=== PATIENT | female | born 1995 | race Caucasian/White ===

== ENCOUNTER 2017-01-04 13:01 | Emergency (ER) | payer MEDICAID ==
[2017-01-04] MEDS ORDERED: Ondansetron 4 MG Tab.DIS PO ONE (13:22)
--- NOTE | 2017-01-04 13:28 | EDM.PDOC ---
ED HPI GENERAL MEDICAL PROBLEM - General Chief Complaint: Abdominal Pain Stated Complaint: LOWER RIGHT ABDOMINAL PAIN Time Seen by Provider: 01/04/17 13:15 Source of Information: Reports: Patient History Limitations: Reports: No Limitations - History of Present Illness INITIAL COMMENTS - FREE TEXT/NARRATIVE: 21 yo female presents with nausea, vomiting, diarrhea, and RLQ abdominal pain that began last evening. Took acetaminophen 650 mg po at 0600h today. Had a small amount of bright red blood on the toilet paper with wiping today. No blood in her emesis. No known exposures. Still has her appendix. ? slight dizziness with standing. 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 PYLORI Other OB/BYN History: Right ovarian cyst drained in January Hematologic History: Reports: Anemia, Idiopathic Thrombocytopenia Other Hematologic History: Recently taken off of iron. Social & Family History - Family History Family Medical History: Noncontributory Cardiac: Reports: Hypertension - Tobacco Use Smoking Status *Q: Never Smoker Second Hand Smoke Exposure: No - Caffeine Use Caffeine Use: Reports: None - Alcohol Use Days Per Week of Alcohol Use: 0 Number of Drinks Per Day: 2 Total Drinks Per Week: 0 - Recreational Drug Use Recreational Drug Use: No ED ROS GENERAL - Review of Systems Review Of Systems: See Below Constitutional: Reports: Decreased Appetite HEENT: Reports: No Symptoms Respiratory: Reports: No Symptoms Cardiovascular: Reports: Lightheadedness (mild) Endocrine: Reports: No Symptoms GI/Abdominal: Reports: Abdominal Pain, Diarrhea, Decreased Appetite, Nausea, Vomiting. Denies: Black Stool, Bloody Stool, Constipation, Difficulty Swallowing, Distension, Flatus, Hematemesis, Hematochezia, Melena, Stool Incontinence : Reports: No Symptoms Musculoskeletal: Reports: No Symptoms Skin: Reports: No Symptoms Neurological: Reports: No Symptoms Psychiatric: Reports: No Symptoms ED EXAM, GI/ABD - Physical Exam Exam: See Below Exam Limited By: No Limitations General Appearance: Alert, WD/WN, No Apparent Distress, Obese Eyes: Bilateral: Normal Appearance, EOMI Ears: Normal External Exam, Normal Canal, Hearing Grossly Normal Nose: Normal Inspection, Normal Mucosa, No Blood Throat/Mouth: Normal Inspection, Normal Lips, Normal Teeth, Normal Oropharynx, Normal Voice, No Airway Compromise Head: Atraumatic, Normocephalic Neck: Normal Inspection, Supple Respiratory/Chest: No Respiratory Distress, Lungs Clear, Normal Breath Sounds, No Accessory Muscle Use Cardiovascular: Regular Rate, Rhythm, No Edema GI/Abdominal: Soft, No Distention, Hypoactive Bowel Sounds, Tenderness, McBurney 's Sign, Other (Striae). No: Guarding, Rebound Back Exam: Normal Inspection. No: CVA Tenderness (R), CVA Tenderness (L) Extremities: Normal Inspection, Normal Range of Motion, Non-Tender, No Pedal Edema Neurological: Alert, Oriented, CN II-XII Intact, Normal Cognition, No Motor/ Sensory Deficits Psychiatric: Normal Affect, Normal Mood Skin Exam: Warm, Dry, Intact, Normal Color, No Rash Lymphatic: No Adenopathy Course - Vital Signs Text/Narrative:: Zofran ODT 4 mg SL, acetaminophen 1000 mg po, diclyclomine 20 mg po orthostatic vitals-negative Last Recorded V/S: Orthostatic Blood Pressure [ 142/95 Standing] Orthostatic Blood Pressure [ 142/82 Sitting] Orthostatic Blood Pressure [ 132/75 Supine] - Orders/Labs/Meds Orders: Active Orders 24 hr Category Date Time Status Orthostatic Vital Signs [RC] ASDIRECTED Care 01/04/17 13:22 Active UA W/MICROSCOPIC [URIN] Stat Lab 01/04/17 14:05 Received Labs: Laboratory Tests 01/04/17 01/04/17 01/04/17 Range/Units 13:27 13:27 13:27 WBC 10.4 (4.5-12.0) X10-3/uL RBC 4.87 (3.23-5.20) x10(6)uL Hgb 14.1 (11.5-15.5) g/dL Hct 41.9 (30.0-51.3) % MCV 85.9 (80-96) fL MCH 28.9 (27.7-33.6) pg MCHC 33.6 (32.2-35.4) g/dL RDW 12.4 (11.5-15.5) % Plt Count 120 L (125-369) X10(3)uL Sodium 136 (135-145) mmol/L Potassium 3.7 (3.5-5.3) mmol/L Chloride 106 (100-110) mmol/L Carbon Dioxide 23 (23-29) mmol/L BUN 10 (5-20) mg/dL Creatinine 0.6 (0.6-1.3) mg/dL Est Cr Clr Drug Dosing TNP Estimated GFR (MDRD) > 60 (>60) BUN/Creatinine Ratio 16.7 (9-20) Glucose 92 (80-116) mg/dL Calcium 9.0 (8.6-10.2) mg/dL C-Reactive Protein 0.9 (0.0-1.0) mg/dL Meds: Medications Discontinued Medications Generic Name Dose Route Start Last Admin Trade Name Goldq PRN Reason Stop Dose Admin Acetaminophen 1,000 mg 01/04/17 13:57 Tylenol Extra Strength PO 01/04/17 13:58 ONETIME ONE Dicyclomine HCl 20 mg 01/04/17 13:58 Bentyl PO 01/04/17 13:59 ONETIME ONE Ondansetron HCl 4 mg 01/04/17 13:22 01/04/17 13:43 Zofran Odt PO 01/04/17 13:23 4 mg ONETIME ONE Administration Departure - Departure Time of Disposition: 14:25 Disposition: Home, Self-Care 01 Condition: good Clinical Impression: Nausea vomiting and diarrhea - Discharge Information - My Orders Last 24 Hours: My Active Orders 01/04/17 13:22 Orthostatic Vital Signs [RC] ASDIRECTED 01/04/17 14:05 UA W/MICROSCOPIC [URIN] Stat - Assessment/Plan Last 24 Hours: My Active Orders 01/04/17 13:22 Orthostatic Vital Signs [RC] ASDIRECTED 01/04/17 14:05 UA W/MICROSCOPIC [URIN] Stat
[2017-01-04] MEDS ORDERED: Acetaminophen 500 MG Tab PO ONE (13:57)
[2017-01-04] MEDS ORDERED: Dicyclomine 10 MG Cap PO ONE (13:58)
[2017-01-04 14:53] VITALS: BP 137/82
== END 2017-01-04 14:37 | disposition home or self-care (01) ==
LOC: FB.ED 13:01
DX: R11.2 Nausea with vomiting, unspecified (principal); R19.7 Diarrhea, unspecified; R10.31 Right lower quadrant pain; Z86.2 Personal history of diseases of the blood and blood-forming organs and certain disorders involving the immune mechanism
CPT/HCPCS: 36415; 80048; 81001; 85027; 86140; 99284; A9270

== ENCOUNTER 2017-01-11 16:31 | Observation (INO) | payer MEDICAID ==
[2017-01-11] MEDS ORDERED: Sodium Chloride 0.9% 10 ML Syringe FLUSH PRN (18:13)
[2017-01-11] MEDS: Sodium Chloride 0.9% 1,000 ML IV SCH (18:40)
[2017-01-11] MEDS: Ondansetron 4 MG Tab.DIS PO PRN (18:40)
[2017-01-11] MEDS ORDERED: Ibuprofen 600 MG Tab PO PRN (19:26)
[2017-01-11] MEDS ORDERED: Sodium Chloride 0.9% 1,000 ML IV ONE (19:27)
--- NOTE | 2017-01-11 20:46 | PCM.HP ---
H&P History of Present Illness - General Date of Service: 01/11/17 Admit Problem/Dx: Admission Diagnosis/Problem Admission Diagnosis/Problem Abdominal pain Source of Information: Patient History Limitations: Reports: No Limitations - History of Present Illness Initial Comments - Free Text/Narative: Is a 21-year-old female patient that had nausea and vomiting for 10 days with a right lower quadrant abdominal pain. She was seen in the ER x1 with negative UA and was given Zofran. She says Zofran did not help. He saw Dr. Rick today and was admitted. She says she's not been able to eat anything for the last 3 days. She says she had an ovarian cyst on the right side was operated on a year ago. She has had no other abdominal surgeries. She denies dysuria, pyuria, hematuria, vaginal discharge. She just started her period 2 days ago. She doesn't believe she's . She is engaged and has been in a monogamous relationship for quite some time. She states she got she has a STD. She denies diarrhea, hematochezia, melena or constipation. She denies fevers or chills. She says the pain is right lower quadrant and it does not radiate. Nothing makes it better. The bending over makes it worse. - Related Data Allergies/Adverse Reactions: Allergies Allergy/AdvReac Type Severity Reaction Status Date / Time No Known Allergies Allergy Verified 01/11/17 17:23 Home Medications: Home Meds Ondansetron [Zofran ODT] 4 mg PO Q6H PRN #7 tab.dis 01/04/17 [Rx] Norgestimate-Ethinyl Estradiol [Norg-Ee 0.18-0.215-0.25/0.025] 1 each PO DAILY 01/11/17 [History] Venlafaxine HCl [Venlafaxine ER] 75 mg PO BEDTIME 01/11/17 [History] Past Medical History - Past Health History Medical/Surgical History: Denies Medical/Surgical History Other Gastrointestinal History: H. PYLORI Other OB/BYN History: Right ovarian cyst drained in January Hematologic History: Reports: Anemia, Idiopathic Thrombocytopenia Other Hematologic History: Recently taken off of iron. - Past Surgical History GI Surgical History: Reports: None Social & Family History - Family History Family Medical History: Noncontributory Cardiac: Reports: Hypertension - Tobacco Use Smoking Status *Q: Never Smoker Second Hand Smoke Exposure: No - Caffeine Use Caffeine Use: Reports: Soda - Alcohol Use Days Per Week of Alcohol Use: 0 Number of Drinks Per Day: 2 Total Drinks Per Week: 0 - Recreational Drug Use Recreational Drug Use: No H&P Review of Systems - Review of Systems: Review Of Systems: See Below General: Reports: No Symptoms HEENT: Reports: No Symptoms Pulmonary: Reports: No Symptoms Cardiovascular: Reports: No Symptoms Gastrointestinal: Reports: Abdominal Pain Genitourinary: Reports: No Symptoms Musculoskeletal: Reports: No Symptoms Skin: Reports: No Symptoms Psychiatric: Reports: No Symptoms Neurological: Reports: No Symptoms Hematologic/Lymphatic: Reports: No Symptoms Immunologic: Reports: No Symptoms Exam - Exam Exam: See Below - Vital Signs Vital Signs: Last Vital Signs Temp 97.9 F 01/11/17 16:45 Pulse 105 H 01/11/17 16:45 Resp 16 01/11/17 16:45 BP 130/88 01/11/17 16:45 Pulse Ox 97 01/11/17 16:45 Weight: 270 lb - Exam General: Alert, Oriented, Cooperative HEENT: Hearing Intact, Posterior Pharynx Clear, TMs Clear. No: Mucosa Moist & [place] Neck: Supple, Trachea Midline Lungs: Clear to Auscultation, Normal Respiratory Effort Cardiovascular: Regular Rate, Regular Rhythm, Normal S1, Normal S2. No: Systolic Murmur, Diastolic Murmur Abdomen: Soft, Tenderness (Mild tenderness to right lower quadrant. No rebound or guarding.). No: Peritoneal Signs, Distention, Guarding, Rigidity (Female) Exam: Other (Deferred) Back Exam: Normal Inspection, Full Range of Motion Skin: Warm, Dry, Intact Neuro Extensive - Mental Status: Alert, Oriented x3, Normal Mood/Affect, Normal Cognition, Memory Intact Neuro Extensive - Motor, Sensory, Reflexes: Normal Gait Psychiatric: Alert, Normal Affect, Normal Mood - Patient Data Lab Results last 24 hrs: Laboratory Results - last 24 hr 01/11/17 01/11/17 01/11/17 Range/Units 18:30 18:30 19:20 WBC 13.3 H (4.5-12.0) X10-3/uL RBC 5.22 H (3.23-5.20) x10(6)uL Hgb 14.9 (11.5-15.5) g/dL Hct 44.7 (30.0-51.3) % MCV 85.6 (80-96) fL MCH 28.4 (27.7-33.6) pg MCHC 33.2 (32.2-35.4) g/dL RDW 12.1 (11.5-15.5) % Plt Count 153 (125-369) X10(3)uL MPV 10.0 (7.4-10.4) fL Neut % (Auto) 75.4 (46-82) % Lymph % (Auto) 17.2 (13-37) % [place] % (Auto) 5.7 (4-12) % Eos % (Auto) 1 (1.0-5.0) % Baso % (Auto) 1 (0-2) % Neut # (Auto) 10.0 H (1.6-8.3) # Lymph # (Auto) 2.3 (0.6-5.0) # [place] # (Auto) 0.8 (0.0-1.3) # Eos # (Auto) 0.1 (0.0-0.8) # Baso # (Auto) 0.1 (0.0-0.2) # Sodium 136 (135-145) mmol/L Potassium 3.3 L (3.5-5.3) mmol/L Chloride 105 (100-110) mmol/L Carbon Dioxide 21 L (23-29) mmol/L BUN 12 (5-20) mg/dL Creatinine 0.5 L (0.6-1.3) mg/dL Est Cr Clr Drug Dosing 173.08 mL/min Estimated GFR (MDRD) > 60 (>60) BUN/Creatinine Ratio 24.0 H (9-20) Glucose 94 (80-116) mg/dL Calcium 9.1 (8.6-10.2) mg/dL Total Bilirubin 0.4 (0.1-1.3) mg/dL AST 31 H D (5-27) IU/L ALT 65 H D (14-26) IU/L Alkaline Phosphatase 71 (56-112) IU/L Total Protein 8.2 H (6.0-8.0) g/dL Albumin 4.4 (3.5-5.2) g/dL Globulin 3.8 g/dL Albumin/Globulin Ratio 1.2 Urine HCG, Qual Negative (NEGATIVE) Result Diagrams: 01/11/17 18:30 01/11/17 18:30 *Q Meaningful Use (ADM) - VTE *Q VTE Criteria *Q: - Stroke *Q Stroke Criteria *Q: - AMI *Q AMI Criteria *Q: - Problem List (1) Vomiting SNOMED Code(s): 072158860 ICD Code: R11.10 - VOMITING, UNSPECIFIED Status: Acute Current Visit: Yes (2) Dehydration SNOMED Code(s): 97205987 ICD Code: E86.0 - DEHYDRATION Status: Acute Current Visit: Yes (3) Right lower quadrant abdominal pain SNOMED Code(s): 609443477 ICD Code: R10.31 - RIGHT LOWER QUADRANT PAIN Status: Acute Current Visit : Yes Problem List Initiated/Reviewed/Updated: Yes Orders Last 24hrs: Active Orders 24 hr Category Date Time Status Height and Weight [RC] DAILY Care 01/11/17 18:13 Active Intake and Output [RC] QSHIFT Care 01/11/17 18:14 Active May Shower [RC] ASDIRECTED Care 01/11/17 18:13 Active Oxygen Therapy [RC] PRN Care 01/11/17 18:13 Active Up ad Yaneth [RC] ASDIRECTED Care 01/11/17 18:13 Active VTE/DVT Education [RC] Per Unit Routine Care 01/11/17 18:13 Active Vital Signs [RC] Q4H Care 01/11/17 18:13 Active Clear Liquid Diet [DIET] Diet 01/11/17 Dinner Active Pelvis Non OB Comp [US] Routine Exams 01/11/17 18:18 Ordered CHLAMYDIA,AND GC BY APTIMA Routine Lab 01/11/17 19:20 Received CULTURE BLOOD [BC] Urgent Lab 01/11/17 18:30 Received CULTURE BLOOD [BC] Urgent Lab 01/11/17 18:40 Received UA W/MICROSCOPIC [URIN] Routine Lab 01/11/17 19:20 Received Ibuprofen [Motrin] Med 01/11/17 19:26 Active 600 mg PO Q6H PRN Ondansetron [Zofran ODT] Med 01/11/17 18:13 Active 4 mg PO Q4H PRN Sodium Chloride 0.9% [Normal Saline] 1,000 ml Med 01/11/17 18:30 Active IV ASDIRECTED Sodium Chloride 0.9% [Saline Flush] Med 01/11/17 18:13 Active 10 ml FLUSH ASDIRECTED PRN Venlafaxine [Effexor XR] Med 01/11/17 21:00 Active 75 mg PO BEDTIME Blood Culture x2 Reflex Set [OM.PC] Urgent Oth 01/11/17 18:13 Ordered Peripheral IV Insertion Adult [OM.PC] Routine Oth 01/11/17 18:13 Ordered Resuscitation Status Routine Resus Stat 01/11/17 18:13 Ordered Medication Orders Sodium Chloride (Normal Saline) 1,000 mls @ 200 mls/hr IV ASDIRECTED ARELY Last Admin: 01/11/17 18:40 Dose: 200 mls/hr Ibuprofen (Motrin) 600 mg PO Q6H PRN PRN Reason: Pain Ondansetron HCl (Zofran Odt) 4 mg PO Q4H PRN PRN Reason: nausea, able to take PO Last Admin: 01/11/17 18:40 Dose: 4 mg Sodium Chloride (Saline Flush) 10 ml FLUSH ASDIRECTED PRN PRN Reason: Keep Vein Open Venlafaxine HCl (Effexor Xr) 75 mg PO BEDTIME [facility] Assessment/Plan Comment:: 1. Admit for observation. 2. Aggressive IV fluids. 3. Her white count a little elevated but I still think has not appendicitis at this time. 4. Recheck CBC and labs in the morning. 5. He medication. 6. Zofran by mouth for nausea or vomiting. 7. Urine is negative. GC/Chlamydia in the urine. 8. Clear liquids/up ad yaneth.
[2017-01-11] MEDS: Acetaminophen/HYDROcodone 325-5 MG Tab PO PRN (21:30)
[2017-01-11] MEDS ORDERED: Iopamidol 755 MG/ML 150 ML Bottle IV ONE (21:34)
[2017-01-11] MEDS: Venlafaxine 75 MG Cap.ER PO SCH (22:53)
[2017-01-12] MEDS: Sodium Chloride 0.9% 1,000 ML IV SCH ×3 (00:26→12:12)
[2017-01-12] MEDS: Acetaminophen/HYDROcodone 325-5 MG Tab PO PRN ×4 (01:47→20:15)
[2017-01-12] MEDS: Ondansetron 4 MG Tab.DIS PO PRN ×4 (05:08→20:16)
--- NOTE | 2017-01-12 08:41 | PCM.PN ---
- General Info Date of Service: 01/12/17 Admission Dx/Problem (Free Text): Patient states she still is abdominal pain. Ibuprofen is not helping with the hydrocodone is helping. She still feels nauseated and has not been urinating much. She did not vomit today but felt like she should. Zofran was helping. - Patient Data Vitals - most recent: Last Vital Signs Temp 97.5 F 01/12/17 05:00 Pulse 90 01/12/17 05:00 Resp 18 01/12/17 05:00 BP 115/80 01/12/17 05:00 Pulse Ox 98 01/12/17 05:00 Weight - most recent: 281 lb 6.4 oz I&O - last 24 hours: Intake & Output 01/11/17 01/12/17 01/12/17 22:59 06:59 14:59 Intake Total 1924 1750 Output Total 235 175 Balance 1689 1575 Lab Results last 24 hrs: Laboratory Results - last 24 hr 01/11/17 01/11/17 01/11/17 Range/Units 18:30 18:30 19:20 WBC 13.3 H (4.5-12.0) X10-3/uL RBC 5.22 H (3.23-5.20) x10(6)uL Hgb 14.9 (11.5-15.5) g/dL Hct 44.7 (30.0-51.3) % MCV 85.6 (80-96) fL MCH 28.4 (27.7-33.6) pg MCHC 33.2 (32.2-35.4) g/dL RDW 12.1 (11.5-15.5) % Plt Count 153 (125-369) X10(3)uL MPV 10.0 (7.4-10.4) fL Neut % (Auto) 75.4 (46-82) % Lymph % (Auto) 17.2 (13-37) % [place] % (Auto) 5.7 (4-12) % Eos % (Auto) 1 (1.0-5.0) % Baso % (Auto) 1 (0-2) % Neut # (Auto) 10.0 H (1.6-8.3) # Lymph # (Auto) 2.3 (0.6-5.0) # [place] # (Auto) 0.8 (0.0-1.3) # Eos # (Auto) 0.1 (0.0-0.8) # Baso # (Auto) 0.1 (0.0-0.2) # Sodium 136 (135-145) mmol/L Potassium 3.3 L (3.5-5.3) mmol/L Chloride 105 (100-110) mmol/L Carbon Dioxide 21 L (23-29) mmol/L BUN 12 (5-20) mg/dL Creatinine 0.5 L (0.6-1.3) mg/dL Est Cr Clr Drug Dosing 173.08 mL/min Estimated GFR (MDRD) > 60 (>60) BUN/Creatinine Ratio 24.0 H (9-20) Glucose 94 (80-116) mg/dL Calcium 9.1 (8.6-10.2) mg/dL Total Bilirubin 0.4 (0.1-1.3) mg/dL AST 31 H D (5-27) IU/L ALT 65 H D (14-26) IU/L Alkaline Phosphatase 71 (56-112) IU/L Total Protein 8.2 H (6.0-8.0) g/dL Albumin 4.4 (3.5-5.2) g/dL Globulin 3.8 g/dL Albumin/Globulin Ratio 1.2 Urine Color (YELLOW) Urine Appearance (CLEAR) Urine pH (5.0-6.5) Ur Specific [place] (1.010-1.025) Urine Protein (NEGATIVE) mg/dL Urine Glucose (UA) (NEGATIVE) mg/dL Urine Ketones (NEGATIVE) mg/dL Urine Occult Blood (NEGATIVE) Urine Nitrite (NEGATIVE) Urine Bilirubin (NEGATIVE) Urine Urobilinogen (NEGATIVE) mg/dL Ur Leukocyte Esterase (NEGATIVE) Urine RBC (0) Urine WBC (0) Ur Squamous Epith Cells (NS,R,O) Urine Bacteria (NS) Urine Mucus (NS) Urine HCG, Qual Negative (NEGATIVE) 01/11/17 01/12/17 01/12/17 Range/Units 19:20 06:20 06:20 WBC 6.7 (4.5-12.0) X10-3/uL RBC 4.34 (3.23-5.20) x10(6)uL Hgb 12.6 (11.5-15.5) g/dL Hct 37.4 (30.0-51.3) % MCV 86.1 (80-96) fL MCH 28.9 (27.7-33.6) pg MCHC 33.6 (32.2-35.4) g/dL RDW 12.7 (11.5-15.5) % Plt Count 117 L (125-369) X10(3)uL MPV 10.5 H (7.4-10.4) fL Neut % (Auto) 55.6 (46-82) % Lymph % (Auto) 33.1 (13-37) % [place] % (Auto) 9.3 (4-12) % Eos % (Auto) 1 (1.0-5.0) % Baso % (Auto) 1 (0-2) % Neut # (Auto) 3.8 (1.6-8.3) # Lymph # (Auto) 2.2 (0.6-5.0) # [place] # (Auto) 0.6 (0.0-1.3) # Eos # (Auto) 0.1 (0.0-0.8) # Baso # (Auto) 0.0 (0.0-0.2) # Sodium 136 (135-145) mmol/L Potassium 3.3 L (3.5-5.3) mmol/L Chloride 108 (100-110) mmol/L Carbon Dioxide 21 L (23-29) mmol/L BUN 14 (5-20) mg/dL Creatinine 0.6 (0.6-1.3) mg/dL Est Cr Clr Drug Dosing 149.62 mL/min Estimated GFR (MDRD) > 60 (>60) BUN/Creatinine Ratio 23.3 H (9-20) Glucose 86 (80-116) mg/dL Calcium 7.6 L (8.6-10.2) mg/dL Total Bilirubin (0.1-1.3) mg/dL AST (5-27) IU/L ALT (14-26) IU/L Alkaline Phosphatase (56-112) IU/L Total Protein (6.0-8.0) g/dL Albumin (3.5-5.2) g/dL Globulin g/dL Albumin/Globulin Ratio Urine Color Yellow (YELLOW) Urine Appearance Clear (CLEAR) Urine pH 5.0 (5.0-6.5) Ur Specific [place] 1.020 (1.010-1.025) Urine Protein Negative (NEGATIVE) mg/dL Urine Glucose (UA) Normal (NEGATIVE) mg/dL Urine Ketones Negative (NEGATIVE) mg/dL Urine Occult Blood Large H (NEGATIVE) Urine Nitrite Negative (NEGATIVE) Urine Bilirubin Negative (NEGATIVE) Urine Urobilinogen Normal (NEGATIVE) mg/dL Ur Leukocyte Esterase Negative (NEGATIVE) Urine RBC 10-20 H (0) Urine WBC 0-5 (0) Ur Squamous Epith Cells Many H (NS,R,O) Urine Bacteria Moderate H (NS) Urine Mucus Moderate H (NS) Urine HCG, Qual (NEGATIVE) Med Orders - Current: Current Medications Hydrocodone Bitart/Acetaminophen ([place] 325-5 Mg) 1 tab PO Q4H PRN PRN Reason: Pain Last Admin: 01/12/17 06:06 Dose: 1 tab Sodium Chloride (Normal Saline) 1,000 mls @ 200 mls/hr IV ASDIRECTED [facility] Last Admin: 01/12/17 05:09 Dose: 200 mls/hr Ibuprofen (Motrin) 600 mg PO Q6H PRN PRN Reason: Pain Last Admin: 01/11/17 20:30 Dose: 600 mg Ondansetron HCl (Zofran Odt) 4 mg PO Q4H PRN PRN Reason: nausea, able to take PO Last Admin: 01/12/17 05:08 Dose: 4 mg Sodium Chloride (Saline Flush) 10 ml FLUSH ASDIRECTED PRN PRN Reason: Keep Vein Open Venlafaxine HCl (Effexor Xr) 75 mg PO BEDTIME [facility] Last Admin: 01/11/17 22:53 Dose: Not Given Discontinued Medications Sodium Chloride (Normal Saline) 1,000 mls @ 999 mls/hr IV ONETIME ONE Stop: 01/11/17 20:27 Last Admin: 01/11/17 20:00 Dose: 999 mls/hr Iopamidol (Isovue-370 (76%)) 150 ml IV ONETIME ONE Stop: 01/11/17 21:35 Last Admin: 01/11/17 21:50 Dose: 138 ml - Exam General: alert, oriented, cooperative Lungs: Clear to auscultation, Normal respiratory effort Cardiovascular: Regular Rate, Regular Rhythm, No Murmurs Abdomen: bowel sounds present, soft, no distension, tenderness (Mild right inguinal region). No: rigidity, rebound, guarding Extremities: no edema - Problem List & Annotations (1) Vomiting SNOMED Code(s): 214593842 Code(s): R11.10 - VOMITING, UNSPECIFIED Status: Acute Current Visit: Yes (2) Dehydration SNOMED Code(s): 11751896 Code(s): E86.0 - DEHYDRATION Status: Acute Current Visit: Yes (3) Ovarian cyst, right SNOMED Code(s): 15204929 Code(s): N83.201 - UNSPECIFIED OVARIAN CYST, RIGHT SIDE Status: Acute Current Visit: Yes - Problem List Review Problem List Initiated/Reviewed/Updated: Yes - My Orders Last 24 Hours: My Active Orders 01/11/17 18:13 Height and Weight [RC] 18 December Shower [RC] ASDIRECTED Oxygen Therapy [RC] PRN Up ad Yaneth [RC] ASDIRECTED VTE/DVT Education [RC] Per Unit Routine Vital Signs [RC] Q4H Ondansetron [Zofran ODT] 4 mg PO Q4H PRN Sodium Chloride 0.9% [Saline Flush] 10 ml FLUSH ASDIRECTED PRN Blood Culture x2 Reflex Set [OM.PC] Urgent Peripheral IV Insertion Adult [OM.PC] Routine Resuscitation Status Routine 01/11/17 18:14 Intake and Output [RC] 06,14,22 01/11/17 18:18 Pelvis Non OB Comp [US] Routine 01/11/17 18:30 CULTURE BLOOD [BC] Urgent Sodium Chloride 0.9% [Normal Saline] 1,000 ml IV ASDIRECTED 01/11/17 18:40 CULTURE BLOOD [BC] Urgent 01/11/17 19:20 CHLAMYDIA,AND GC BY APTIMA Routine 01/11/17 19:26 Ibuprofen [Motrin] 600 mg PO Q6H PRN 01/11/17 20:50 Acetaminophen/HYDROcodone [[place] 325-5 MG] 1 tab PO Q4H PRN 01/11/17 21:00 Venlafaxine [Effexor XR] 75 mg PO BEDTIME 01/11/17 21:17 Abdomen Pelvis w wo Cont [CT] Routine 01/11/17 Dinner Clear Liquid Diet [DIET] - Plan Plan:: 1. CT Shows an ovarian cyst and no appendicitis. Her white count is back to normal also. 2. Continue aggressive IV rehydration, pain control. 3. Advance diet as she tolerates. 4. Pelvic ultrasound.
[2017-01-12] MEDS ORDERED: Sodium Chloride 0.9% 1,000 ML IV ONE (11:04)
--- NOTE | 2017-01-12 15:55 | US ---
INDICATION: CT from yesterday showed question of a low-density lesion at the right ovary, question cyst. TRANSVAGINAL PELVIC ULTRASOUND: Utilizing transvaginal probe, multiple ultrasonic images were obtained 01/12/2017 and were compared with CT scan dated 01/11/2017. The uterus measured 6.9 x 2.8 x 3.1 cm. The right ovary measured 3.2 x 3 x 3.1 cm. The left ovary measured 1.6 x 1 x 1.5 cm. Nabothian cysts were noted at the cervix. The endometrial cavity measured 3.1 mm and for the most part appeared normal. The uterus was fairly unremarkable. At the right ovary, there is a purely cystic mass, measuring approximately 3.2 x 3 x 3.4 cm, most likely representing a physiologic cyst. A follow-up study in 2 or 6 weeks is recommended for confirmation of physiologic nature. The left ovary was not very well visualized due to intestinal gas and was essentially unremarkable. No adnexal mass lesions or free fluid collections were identified. IMPRESSION: Probable physiologic cyst 3.4 cm at the right ovary. Follow-up study with transvaginal probe recommended at 2 or 6 weeks to confirm involution. [facility]
[2017-01-12] MEDS ORDERED: Bisacodyl 10 MG Supp RECTAL PRN (17:18)
[2017-01-12] MEDS: D5 1/2 NS w/ 20 mEq/L KCl 1,000 ML IV SCH (17:35)
[2017-01-12] MEDS: Venlafaxine 75 MG Cap.ER PO SCH (21:28)
[2017-01-13] MEDS: D5 1/2 NS w/ 20 mEq/L KCl 1,000 ML IV SCH (02:40)
[2017-01-13] MEDS: Acetaminophen/HYDROcodone 325-5 MG Tab PO PRN ×2 (04:45→09:11)
--- NOTE | 2017-01-13 08:10 | PCM.PN ---
- General Info Date of Service: 01/13/17 Admission Dx/Problem (Free Text): Patient states that she did vomit up her supper last night. Overall she's feeling better. The hydrocodone is helping her abdominal pain. She's able to drink and now has an appetite. She says Zofran is not helping. She is now back urinating normally. No fevers or chills. - Patient Data Vitals - most recent: Last Vital Signs Temp 97.8 F 01/13/17 04:40 Pulse 71 01/13/17 04:40 Resp 18 01/13/17 04:40 BP 109/67 01/13/17 04:40 Pulse Ox 100 01/13/17 04:40 Weight - most recent: 281 lb 6.4 oz I&O - last 24 hours: Intake & Output 01/12/17 01/13/17 01/13/17 22:59 06:59 14:59 Intake Total 2367 1031 Output Total 650 125 Balance 1717 906 [place] Results last 24 hrs: Microbiology 01/11/17 18:40 Aerobic Blood Culture - Preliminary Blood - Venous - Lab Draw NO GROWTH AFTER 1 DAY Anaerobic Blood Culture - Preliminary NO GROWTH AFTER 1 DAY 01/11/17 18:30 Aerobic Blood Culture - Preliminary Blood - Venous NO GROWTH AFTER 1 DAY Anaerobic Blood Culture - Preliminary NO GROWTH AFTER 1 DAY Med Orders - Current: Current Medications Hydrocodone Bitart/Acetaminophen ([place] 325-5 Mg) 1 tab PO Q4H PRN PRN Reason: Pain Last Admin: 01/13/17 04:45 Dose: 1 tab Bisacodyl (Dulcolax) 10 mg RECTAL DAILY PRN PRN Reason: Constipation Last Admin: 01/12/17 18:45 Dose: 10 mg Potassium Chloride/Dextrose/Sod Cl (D5 1/2 Ns W/ 20 Meq/L Kcl) 1,000 mls @ 125 mls/hr IV ASDIRECTED ARELY Last Admin: 01/13/17 02:40 Dose: 125 mls/hr Ibuprofen (Motrin) 600 mg PO Q6H PRN PRN Reason: Pain Last Admin: 01/11/17 20:30 Dose: 600 mg Ondansetron HCl (Zofran Odt) 4 mg PO Q4H PRN PRN Reason: nausea, able to take PO Last Admin: 01/12/17 20:16 Dose: 4 mg Sodium Chloride (Saline Flush) 10 ml FLUSH ASDIRECTED PRN PRN Reason: Keep Vein Open Venlafaxine HCl (Effexor Xr) 75 mg PO BEDTIME [facility] Last Admin: 01/12/17 21:28 Dose: 75 mg Discontinued Medications Sodium Chloride (Normal Saline) 1,000 mls @ 200 mls/hr IV ASDIRECTED [facility] Last Admin: 01/12/17 12:12 Dose: 200 mls/hr Sodium Chloride (Normal Saline) 1,000 mls @ 999 mls/hr IV ONETIME ONE Stop: 01/11/17 20:27 Last Admin: 01/11/17 20:00 Dose: 999 mls/hr Sodium Chloride (Normal Saline) 1,000 mls @ 999 mls/hr IV .BOLUS ONE Stop: 01/12/17 12:04 Last Admin: 01/12/17 11:13 Dose: 999 mls/hr Iopamidol (Isovue-370 (76%)) 150 ml IV ONETIME ONE Stop: 01/11/17 21:35 Last Admin: 01/11/17 21:50 Dose: 138 ml - Exam General: alert, oriented, cooperative Lungs: Normal respiratory effort Abdomen: bowel sounds present, soft, no tenderness, no distension - Problem List & Annotations (1) Vomiting SNOMED Code(s): 596176974 Code(s): R11.10 - VOMITING, UNSPECIFIED Status: Acute Current Visit: Yes (2) Dehydration SNOMED Code(s): 38938309 Code(s): E86.0 - DEHYDRATION Status: Acute Current Visit: Yes (3) Ovarian cyst, right SNOMED Code(s): 86120242 Code(s): N83.201 - UNSPECIFIED OVARIAN CYST, RIGHT SIDE Status: Acute Current Visit: Yes - Problem List Review Problem List Initiated/Reviewed/Updated: Yes - My Orders Last 24 Hours: My Active Orders 01/12/17 10:19 Urinary Catheter Assessment [RC] 08,16,00 01/12/17 10:30 Insert Urinary Catheter [OM.PC] Per Unit Routine 01/12/17 17:18 Bisacodyl [Dulcolax] 10 mg RECTAL DAILY PRN 01/12/17 17:30 D5 1/2 NS w/ 20 mEq/L KCl 1,000 ml IV ASDIRECTED 01/12/17 Lunch Regular Diet [DIET] - Plan Plan:: 1. discharged to home on Zofran, hydrocodone and control pills for her ovarian cyst. 2. Followup with Dr. Rick next week and then she will make an appointment with her INVESTOR for a ovarian cyst.
[2017-01-13 08:17] VITALS: BP 131/80
--- NOTE | 2017-01-13 08:24 | PCM.DCSUM1 ---
Discharge Summary - Hospital Course Free Text/Narrative:: Hospital course-patient was admitted and given copious amounts of normal saline. Her potassium was slightly decreased but remained okay. Her abdominal pain was right lower quadrant. CT scan was done that showed an ovarian cyst 4 cm. No appendicitis or any other pathology was found. We tried ibuprofen for pain but it didn't work so she had to have hydrocodone and that did work. The next day a vaginal ultrasound was done that showed 3.5 cm right ovarian cyst. Patient's nausea and vomiting got better with the fluids. She states she has a better appetite. She vomited once the next day. Later in the day she told her that she did have diarrhea the week prior but did not tell me in the history. That was better. GC/Chlamydia urine was done and is pending. Urine was negative. WBC was slightly elevated on admission and the next day was normal. She will followup in one week with Dr. Rick and she will make an appointment with her PERCUSSION INSTRUMENT TUNER for her ovarian cyst. She says she has oral control at home. I instructed her to restart it. UA was also negative. Brief History: Is a 21-year-old female patient that had nausea and vomiting for 10 days with a right lower quadrant abdominal pain. She was seen in the ER x1 with negative UA and was given Zofran. She says Zofran did not help. He saw Dr. Rick today and was admitted. She says she's not been able to eat anything for the last 3 days. She says she had an ovarian cyst on the right side was operated on a year ago. She has had no other abdominal surgeries. She denies dysuria, pyuria, hematuria, vaginal discharge. She just started her period 2 days ago. She doesn't believe she's . She is engaged and has been in a monogamous relationship for quite some time. She states she got she has a STD. She denies diarrhea, hematochezia, melena or constipation. She denies fevers or chills. She says the pain is right lower quadrant and it does not radiate. Nothing makes it better. The bending over makes it worse. - Discharge Data Discharge Date: 01/13/17 Discharge Disposition: Home, Self-Care 01 Condition: Good - Discharge Diagnosis/Problem(s) (1) Vomiting SNOMED Code(s): 664686520 ICD Code: R11.10 - VOMITING, UNSPECIFIED Status: Acute Current Visit: Yes (2) Dehydration SNOMED Code(s): 66934389 ICD Code: E86.0 - DEHYDRATION Status: Acute Current Visit: Yes (3) Ovarian cyst, right SNOMED Code(s): 37780398 ICD Code: N83.201 - UNSPECIFIED OVARIAN CYST, RIGHT SIDE Status: Acute Current Visit: Yes - Patient Instructions Diet: Regular Diet as Tolerated Activity: As Tolerated Driving: May Drive Today Showering/Bathing: May Shower Notify Provider of: Fever, Increased Pain, Nausea and/or Vomiting Other/Special Instructions: 1. Recheck with Dr. Rick in one week. 2. Patient is to make an appointment with her PERCUSSION INSTRUMENT TUNER. 3. Patient states she is oral control at home. She should start this on Tuesday and avoid sexual intercourse until then. This is for her ovarian cyst. - Discharge Plan Prescriptions/Med Rec: Acetaminophen/HYDROcodone [[place] 325-5 MG] 1 tab PO Q4H PRN #30 tablet PRN Reason: Pain Ondansetron [Zofran ODT] 4 mg PO Q6H PRN #40 tab.dis PRN Reason: Nausea Home Medications: Home Meds Venlafaxine HCl [Venlafaxine ER] 75 mg PO BEDTIME 01/11/17 [History] Acetaminophen/HYDROcodone [[place] 325-5 MG] 1 tab PO Q4H PRN #30 tablet 01/13/17 [Rx] Ondansetron [Zofran ODT] 4 mg PO Q6H PRN #40 tab.dis 01/13/17 [Rx] - Discharge Summary/Plan Comment DC Time >30 min.: No - Patient Data Vitals - Most Recent: Last Vital Signs Temp 97.5 F 01/13/17 08:16 Pulse 78 01/13/17 08:16 Resp 18 01/13/17 08:16 BP 131/80 01/13/17 08:16 Pulse Ox 99 01/13/17 08:16 Weight - Most Recent: 281 lb 6.4 oz I&O - Last 24 hours: Intake & Output 01/12/17 01/13/17 01/13/17 22:59 06:59 14:59 Intake Total 2367 1031 Output Total 650 125 Balance 1717 906 [place] Results - Last 24 hrs: Microbiology 01/11/17 18:40 Aerobic Blood Culture - Preliminary Blood - Venous - Lab Draw NO GROWTH AFTER 1 DAY Anaerobic Blood Culture - Preliminary NO GROWTH AFTER 1 DAY 01/11/17 18:30 Aerobic Blood Culture - Preliminary Blood - Venous NO GROWTH AFTER 1 DAY Anaerobic Blood Culture - Preliminary NO GROWTH AFTER 1 DAY Med Orders - Current: Current Medications Hydrocodone Bitart/Acetaminophen ([place] 325-5 Mg) 1 tab PO Q4H PRN PRN Reason: Pain Last Admin: 01/13/17 04:45 Dose: 1 tab Bisacodyl (Dulcolax) 10 mg RECTAL DAILY PRN PRN Reason: Constipation Last Admin: 01/12/17 18:45 Dose: 10 mg Potassium Chloride/Dextrose/Sod Cl (D5 1/2 Ns W/ 20 Meq/L Kcl) 1,000 mls @ 125 mls/hr IV ASDIRECTED [facility] Last Admin: 01/13/17 02:40 Dose: 125 mls/hr Ibuprofen (Motrin) 600 mg PO Q6H PRN PRN Reason: Pain Last Admin: 01/11/17 20:30 Dose: 600 mg Ondansetron HCl (Zofran Odt) 4 mg PO Q4H PRN PRN Reason: nausea, able to take PO Last Admin: 01/12/17 20:16 Dose: 4 mg Sodium Chloride (Saline Flush) 10 ml FLUSH ASDIRECTED PRN PRN Reason: Keep Vein Open Venlafaxine HCl (Effexor Xr) 75 mg PO BEDTIME [facility] Last Admin: 01/12/17 21:28 Dose: 75 mg Discontinued Medications Sodium Chloride (Normal Saline) 1,000 mls @ 200 mls/hr IV ASDIRECTED [facility] Last Admin: 01/12/17 12:12 Dose: 200 mls/hr Sodium Chloride (Normal Saline) 1,000 mls @ 999 mls/hr IV ONETIME ONE Stop: 01/11/17 20:27 Last Admin: 01/11/17 20:00 Dose: 999 mls/hr Sodium Chloride (Normal Saline) 1,000 mls @ 999 mls/hr IV .BOLUS ONE Stop: 01/12/17 12:04 Last Admin: 01/12/17 11:13 Dose: 999 mls/hr Iopamidol (Isovue-370 (76%)) 150 ml IV ONETIME ONE Stop: 01/11/17 21:35 Last Admin: 01/11/17 21:50 Dose: 138 ml *Q Meaningful Use (DIS) - VTE *Q VTE Criteria *Q: - Stroke *Q Stroke Criteria *Q: - AMI *Q AMI Criteria *Q:
[2017-01-13] MEDS: Ondansetron 4 MG Tab.DIS PO PRN (09:11)
== END 2017-01-13 11:27 | disposition home or self-care (01) ==
LOC: FB.MS 16:36
PROVIDERS: ADMIT Family Medicine; ATTEND Family Medicine
DX: N83.201 Unspecified ovarian cyst, right side (principal); R11.10 Vomiting, unspecified; E86.0 Dehydration; Z79.899 Other long term (current) drug therapy
CPT/HCPCS: 36415; 74178; 76830; 80048; 80053; 81001; 81025; 85025; 87040; 87491; 87591; 96361; 96365; 96366; A9270; G0378; G0379; J3480; J7040; Q9967

== ENCOUNTER 2017-02-01 06:41 | Day surgery (SDC) | payer MEDICAID ==
[2017-02-01] MEDS ORDERED: Lactated Ringers 1,000 ML IV SCH (07:00)
[2017-02-01] MEDS ORDERED: Sodium Chloride 0.9% 10 ML Syringe FLUSH PRN (07:00)
[2017-02-01] MEDS ORDERED: Ondansetron 4 MG/2 ML SDV IVPUSH ONE (08:00)
[2017-02-01] MEDS ORDERED: Lidocaine 2% 100 MG/5 ML Syringe IVPUSH ONE (08:00)
[2017-02-01] MEDS ORDERED: Propofol 200 MG/20 ML SDV IV ONE (08:00)
[2017-02-01] MEDS ORDERED: Midazolam 1 MG/ML 2 ML SDV IV ONE (08:00)
--- NOTE | 2017-02-01 08:13 | PCM.OPNOTE ---
- General Post-Op/Procedure Note Date of Surgery/Procedure: 02/01/17 Operative Procedure(s): egd with bx Findings: gastroduodenitis Pre Op Diagnosis: nausea and vomiting. hx H pylori Post-Op Diagnosis: gastroduodenitis Primary Surgeon: Jero Gutierrez Anesthesia Provider: Keke Witt Complications: None Condition: Good Free Text/Narrative:: see dictation
[2017-02-01 08:52] VITALS: BP 132/92
--- NOTE | 2017-02-01 11:17 | OR ---
DATE OF OPERATION: 02/01/2017 SURGEON: Jero Gutierrez MD PROCEDURE PERFORMED: Esophagogastroduodenoscopy with cold forceps biopsy. PREOPERATIVE DIAGNOSIS: Persistent nausea and vomiting, history of Helicobacter pylori infection. POSTOPERATIVE DIAGNOSIS: Gastroduodenitis. INDICATIONS FOR PROCEDURE: This is a 21-year-old white female, who presents with the above-mentioned history. She was offered and accepted an EGD. DESCRIPTION OF OPERATION: After an excellent IV sedation was administered, the bite block was inserted. The flexible endoscope was passed without difficulty down to the patient's esophagus into the stomach. The stomach was insufflated. The scope was passed through the pylorus to the second portion of the duodenum and slowly withdrawn. The following findings were noted: First portion of the duodenum, mild duodenitis, biopsies were taken. Stomach demonstrates mild gastritis, biopsies were taken. Esophagus was unremarkable. The stomach was deflated. The scope was removed. The patient tolerated the procedure well, and was taken to recovery room in good condition. /[id number] /MODL
== END 2017-02-01 09:15 | disposition home or self-care (01) ==
LOC: FB.SDS 06:41
PROVIDERS: ATTEND Surgery
PROC: 0DB98ZX Excision of Duodenum, Via Natural or Artificial Opening Endoscopic, Diagnostic (ICD-10-PCS; principal; 2017-02-01)
PROC: 0DB68ZX Excision of Stomach, Via Natural or Artificial Opening Endoscopic, Diagnostic (ICD-10-PCS; 2017-02-01)
DX: K29.80 Duodenitis without bleeding (principal); K29.50 Unspecified chronic gastritis without bleeding; B96.81 Helicobacter pylori [H. pylori] as the cause of diseases classified elsewhere; D69.3 Immune thrombocytopenic purpura; D50.9 Iron deficiency anemia, unspecified
CPT/HCPCS: 43239; 81025; 88305; 88342; J2250; J2405; J2704; J7120

== ENCOUNTER 2018-08-30 09:00 | Emergency (ER) | payer BC, MEDICAID ==
[2018-08-30] MEDS ORDERED: cefTRIAXone 250 MG Vial IM ONE (10:12)
[2018-08-30 10:57] VITALS: BP 121/71
--- NOTE | 2018-08-30 15:42 | EDM.PDOC ---
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 UC pending NKA. Given Rocephin 1 gm IM here and cipro 500 mg BID x 1w at home pt understands that she may need a different antbx if not getting much better soon Treatments ENGINEER BYPRODUCT: Reports: NSAIDS Right Flank Pain Score (Numeric/FACES): 8 - Related Data Allergies Allergy/AdvReac Type Severity Reaction Status Date / Time No Known Allergies Allergy Verified 08/30/18 10:18 Home Meds: Home Meds Phentermine HCl 37.5 mg PO DAILY 08/30/18 [History] Past Medical History - Past Health History Medical/Surgical History: Denies Medical/Surgical History Cardiovascular History: Reports: Other (See Below) Other Cardiovascular History: tachycardia Other Gastrointestinal History: [employer] CONTRACT SERVICEMAN History: Reports: Other (See Below) Other CONTRACT SERVICEMAN History: Right ovarian cyst drained in January Neurological History: Reports: Other (See Below) Other Neuro History: SCIATICA PAIN RT Psychiatric History: Reports: Anxiety, Depression Endocrine/Metabolic History: Reports: Obesity/BMI 30+ Hematologic History: Reports: Anemia, Idiopathic Thrombocytopenia Other Hematologic History: Recently taken off of iron. - Past Surgical History HEENT Surgical History: Reports: Oral Surgery Cardiovascular Surgical History: Reports: None GI Surgical History: Reports: None Social & Family History - Family History Family Medical History: Noncontributory Cardiac: Reports: Hypertension - Tobacco Use Smoking Status *Q: Never Smoker - Caffeine Use Caffeine Use: Reports: None - Recreational Drug Use Recreational Drug Use: No ED ROS GENERAL - Review of Systems Review Of Systems: See Below Constitutional: Reports: No Symptoms. Denies: Fever HEENT: Reports: No Symptoms Respiratory: Reports: No Symptoms Cardiovascular: Reports: No Symptoms Endocrine: Reports: No Symptoms GI/Abdominal: Reports: No Symptoms : Reports: No Symptoms Musculoskeletal: Reports: No Symptoms Skin: Reports: No Symptoms Neurological: Reports: No Symptoms Psychiatric: Reports: No Symptoms Hematologic/Lymphatic: Reports: No Symptoms Immunologic: Reports: No Symptoms ED EXAM,LOWER BACK PAIN/INJURY - Physical Exam Exam: See Below Exam Limited By: No Limitations General Appearance: Alert, WD/WN, No Apparent Distress, Other (moves easily, NAD ) Nose: Normal Inspection, Normal Mucosa, No Blood Throat/Mouth: Normal Inspection, Normal Teeth, Normal Oropharynx Head: Atraumatic, Normocephalic Neck: Normal Inspection, Supple, Non-Tender, Full Range of Motion. No: Lymphadenopathy (R), Lymphadenopathy (L) Respiratory/Chest: No Respiratory Distress, Lungs Clear Cardiovascular: Regular Rate, Rhythm GI/Abdominal: Normal Bowel Sounds, Soft, No Distention, No Mass, Other (1+ tender at R flank and over bladder, 1+ R CVAT, nonacute abd, no guard, no rebound). No: Distended, Guarding, Rigid, Rebound, Mass, Hepatomegaly Back Exam: Normal Inspection, Full Range of Motion, CVA Tenderness (R). No: CVA Tenderness (L) Extremities: Normal Inspection, Normal Range of Motion, Non-Tender, No Pedal Edema Neurological: Alert, Normal Mood/Affect, Normal Dorsiflexion, CN II-XII Intact, No Motor/Sensory Deficits, Oriented x 3 Psychiatric: Normal Affect, Normal Mood Skin Exam: Warm, Dry, Intact, Normal Color, No Rash Lymphatic: No Adenopathy Course - Vital Signs Last Recorded V/S: Last Vital Signs Temp 36.7 C 08/30/18 09:30 Pulse 102 H 08/30/18 09:30 Resp 18 08/30/18 09:30 BP 121/71 08/30/18 09:30 Pulse Ox 100 08/30/18 09:30 - Orders/Labs/Meds Orders: Active Orders 24 hr Category Date Time Status CULTURE URINE [RM] Stat Lab 08/30/18 09:11 Received Labs: Laboratory Tests 08/30/18 Range/Units 09:11 Urine Color Yellow (YELLOW) Urine Appearance Cloudy (CLEAR) Urine pH 5.0 (5.0-6.5) Ur Specific [place] 1.020 (1.010-1.025) Urine Protein 30 H (NEGATIVE) mg/dL Urine Glucose (UA) Normal (NEGATIVE) mg/dL Urine Ketones 15 H (NEGATIVE) mg/dL Urine Occult Blood Large H (NEGATIVE) Urine Nitrite Negative (NEGATIVE) Urine Bilirubin Small H (NEGATIVE) Urine Urobilinogen 1 H (NEGATIVE) mg/dL Ur Leukocyte Esterase Large H (NEGATIVE) Urine RBC 5-10 (0) Urine WBC 50-75 H (0) Ur Squamous Epith Cells Few H (NS,R,O) Urine Bacteria Many H (NS) Meds: Medications Discontinued Medications Generic Name Dose Route Start Last Admin Trade Name Esteban PRN Reason Stop Dose Admin Ceftriaxone Sodium 250 mg 08/30/18 10:12 08/30/18 10:47 Rocephin IM 08/30/18 10:13 250 mg ONETIME ONE Administration Departure - Departure Time of Disposition: 14:46 Disposition: Home, Self-Care 01 Condition: Good Clinical Impression: Pyelonephritis - Discharge Information *PRESCRIPTION DRUG MONITORING PROGRAM REVIEWED*: No *COPY OF PRESCRIPTION DRUG MONITORING REPORT IN PATIENT ZABRINA: No Instructions: Pyelonephritis, Adult, [id number] Referrals: Thom Neff MD [Primary Care Provider] - Forms: ED Department Discharge, ED Return to Work/School Form Care Plan Goals: For infection, take ciprofloxacin 500 mg 1 tab 2 times a day for 7 days. Take 2 doses today. For pain and inflammation, take ibuprofen 200 mg 4 tabs and acetaminophen 500 mg 2 tabs 3 times a day for 2 days, longer if needed. For pain, take tramadol 50 mg 1 tab every 8 hours as needed. No alcohol. Increase fluids. Get adequate rest. See your doctor in 2 days if not much better. Otherwise, see your doctor in 7 days. Return to ED if you are feeling worse. Call your Physician or Return to Emergency Department if: * Your condition worsens in any way. * You develop fever greater than 100.4. * You have vomitting that does not stop with medications. * You have pain that is not controlled with medications. - My Orders Last 24 Hours: My Active Orders 08/30/18 09:11 CULTURE URINE [RM] Stat - Assessment/Plan Last 24 Hours: My Active Orders 08/30/18 09:11 CULTURE URINE [RM] Stat
== END 2018-08-30 10:46 | disposition home or self-care (01) ==
LOC: FB.ED 09:00
DX: N12 Tubulo-interstitial nephritis, not specified as acute or chronic (principal)
CPT/HCPCS: 81001; 87086; 96372; 99284; J0696

== ENCOUNTER 2018-12-06 16:07 | Emergency (ER) | payer BC ==
[2018-12-06] MEDS: Sodium Chloride 0.9% 10 ML Syringe FLUSH PRN (17:08)
[2018-12-06] MEDS: Sodium Chloride 0.9% 1,000 ML IV ONE (17:08)
[2018-12-06] MEDS: Ondansetron 4 MG/2 ML SDV IVPUSH ONE ×2 (17:10→19:22)
--- NOTE | 2018-12-06 17:32 | EDM.PDOC ---
ED HPI GENERAL MEDICAL PROBLEM - General Chief Complaint: Abdominal Pain Stated Complaint: STOMACH PAIN Time Seen by Provider: 12/06/18 16:30 Source of Information: Reports: Patient History Limitations: Reports: No Limitations - History of Present Illness INITIAL COMMENTS - FREE TEXT/NARRATIVE: 23-year-old female who reports not feeling well with nausea on Tuesday night and then was seen by her primary doctor on Tuesday and was treated with muscle relaxers as she was complaining of some back and neck pains at that time. On Tuesday after the clinic, she began to have diffuse abdominal discomfort and yesterday the pain moved to her right lower quadrant and has progressively worsened since that time. No dysuria. She's had no hematuria. She is currently on her menses. No measured fever but she has had chills and felt hot. She has not eaten or drank anything today. She has had no appetite. Had nausea but no vomiting today. She did have vomiting 2 yesterday. No diarrhea. She rates pain as an 8/10. It is worse with bending over and with palpation. There are no other associated signs or symptoms. There are no other modifying factors. Onset: Other (As above) Duration: Getting Worse Location: Reports: Abdomen (Right lower quadrant) Quality: Reports: Sharp Severity: Moderate Improves with: Reports: Rest Worsens with: Reports: Eating (Makes her have nausea.), Movement Context: Reports: Other (As above) Associated Symptoms: Reports: Fever/Chills (Subjective fever with chills), Loss of Appetite, Nausea/Vomiting Other Treatments RN PERINATAL: Nothing R lower abdomen Pain Score (Numeric/FACES): 8 - Related Data Allergies Allergy/AdvReac Type Severity Reaction Status Date / Time No Known Allergies Allergy Verified 12/06/18 16:16 Home Meds: Home Meds Cyclobenzaprine [Flexeril] 10 mg PO TID PRN 12/06/18 [History] Ondansetron [Zofran ODT] 4 mg Q8H PRN 12/06/18 [History] Promethazine [Phenergan] 25 mg PO Q6H PRN #12 tab 12/06/18 [Rx] Past Medical History Gastrointestinal History: Reports: Gastritis, Helicobacter Pylori Other Gastrointestinal History: H. PYLORI Genitourinary History: Reports: UTI, Recurrent SERVICE DELIVERY SUPERVISOR History: Reports: Other (See Below) Other SERVICE DELIVERY SUPERVISOR History: Right ovarian cyst drained in January 2015 Neurological History: Reports: Other (See Below) Other Neuro History: SCIATICA PAIN RT Psychiatric History: Reports: Anxiety, Depression Endocrine/Metabolic History: Reports: Obesity/BMI 30+ Hematologic History: Reports: Anemia, Idiopathic Thrombocytopenia Other Hematologic History: Recently taken off of iron. - Infectious Disease History Infectious Disease History: Reports: Chicken Pox - Past Surgical History HEENT Surgical History: Reports: Oral Surgery GI Surgical History: Reports: Colonoscopy, EGD Female Surgical History: Reports: Cystectomy (Laparoscopic ovarian cystectomy ) Social & Family History - Family History Cardiac: Reports: Hypertension - Tobacco Use Smoking Status *Q: Never Smoker - Caffeine Use Caffeine Use: Reports: None - Alcohol Use Alcohol Use History: No Days Per Week of Alcohol Use: 1 Number of Drinks Per Day: 5 Total Drinks Per Week: 5 - Recreational Drug Use Recreational Drug Use: No - Living Situation & Occupation 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.) ED ROS GENERAL - Review of Systems Review Of Systems: See Below Constitutional: Reports: Fever (Subjective), Chills, Malaise, Decreased Appetite HEENT: Reports: No Symptoms Respiratory: Reports: No Symptoms Cardiovascular: Reports: No Symptoms Endocrine: Reports: No Symptoms GI/Abdominal: Reports: Abdominal Pain, Decreased Appetite, Nausea, Vomiting : Reports: No Symptoms Musculoskeletal: Reports: No Symptoms Skin: Reports: No Symptoms Neurological: Reports: No Symptoms Hematologic/Lymphatic: Reports: No Symptoms Immunologic: Reports: No Symptoms ED EXAM, GI/ABD - Physical Exam Exam: See Below Exam Limited By: No Limitations General Appearance: Alert, Mild Distress, Obese Eyes: Bilateral: Normal Appearance, EOMI Ears: Normal External Exam, Hearing Grossly Normal Nose: Normal Inspection, Normal Mucosa Throat/Mouth: Normal Inspection, Normal Voice, No Airway Compromise, Other ( Somewhat dry membranes) Head: Atraumatic, Normocephalic Neck: Normal Inspection, Supple, Non-Tender, Full Range of Motion Respiratory/Chest: No Respiratory Distress, Lungs Clear, Normal Breath Sounds, No Accessory Muscle Use, Chest Non-Tender Cardiovascular: Normal Peripheral Pulses, No JVD, Tachycardia GI/Abdominal Exam: Normal Bowel Sounds, Soft, No Mass, Tender (In right lower quadrant) Back Exam: Normal Inspection. No: CVA Tenderness (R), CVA Tenderness (L) Extremities: Normal Inspection, Normal Range of Motion, Non-Tender, Normal Capillary Refill Neurological: Alert, Oriented, CN II-XII Intact, Normal Cognition, No Motor/ Sensory Deficits Psychiatric: Normal Affect Skin Exam: Warm, Dry, Intact, Normal Color, No Rash Lymphatic: No Adenopathy Course - Vital Signs Last Recorded V/S: Last Vital Signs Temp 36.8 C 12/06/18 16:15 Pulse 110 H 12/06/18 16:15 Resp 18 12/06/18 16:15 BP 143/93 H 12/06/18 16:15 Pulse Ox 100 12/06/18 16:15 - Orders/Labs/Meds Orders: Active Orders 24 hr Category Date Time Status NPO Now [Nothing per Oral Now Diet] [DIET] Diet 12/07/18 Breakfast Ordered Abdomen Pelvis w Cont [CT] Stat Exams 12/06/18 17:32 Taken Promethazine [Phenergan] Med 12/06/18 19:15 Once 25 mg PO ONETIME ONE Sodium Chloride 0.9% [Saline Flush] Med 12/06/18 16:45 Active 10 ml FLUSH ASDIRECTED PRN Peripheral IV Insertion Adult [OM.PC] Routine Oth 12/06/18 16:45 Ordered Medication Orders Sodium Chloride (Saline Flush) 10 ml FLUSH ASDIRECTED PRN PRN Reason: Keep Vein Open Last Admin: 12/06/18 17:08 Dose: 10 ml Labs: Laboratory Tests 12/06/18 12/06/18 12/06/18 Range/Units 16:20 16:20 16:20 WBC 11.0 (4.5-12.0) X10-3/uL RBC 5.08 (3.23-5.20) x10(6)uL Hgb 14.3 (11.5-15.5) g/dL Hct 42.9 (30.0-51.3) % MCV 84.6 (80-96) fL MCH 28.2 (27.7-33.6) pg MCHC 33.4 (32.2-35.4) g/dL RDW 13.1 (11.5-15.5) % Plt Count 328 (125-369) X10(3)uL MPV 9.2 (7.4-10.4) fL Neut % (Auto) 75.3 (46-82) % Lymph % (Auto) 17.1 (13-37) % [place] % (Auto) 6.0 (4-12) % Eos % (Auto) 1 (1.0-5.0) % Baso % (Auto) 1 (0-2) % Neut # (Auto) 8.2 (1.6-8.3) # Lymph # (Auto) 1.9 (0.6-5.0) # [place] # (Auto) 0.7 (0.0-1.3) # Eos # (Auto) 0.1 (0.0-0.8) # Baso # (Auto) 0.1 (0.0-0.2) # Sodium 137 (135-145) mmol/L Potassium 3.9 (3.5-5.3) mmol/L Chloride 102 (100-110) mmol/L Carbon Dioxide 24 (21-32) mmol/L BUN 13 (7-18) mg/dL Creatinine 0.7 (0.55-1.02) mg/dL Est Cr Clr Drug Dosing 126.09 mL/min Estimated GFR (MDRD) > 60 (>60) BUN/Creatinine Ratio 18.6 (9-20) Glucose 88 (80-116) mg/dL Calcium 9.0 (8.6-10.2) mg/dL Total Bilirubin 0.3 (0.1-1.3) mg/dL AST 27 H (5-25) IU/L ALT 78 H (12-36) U/L Alkaline Phosphatase 81 (56-112) IU/L C-Reactive Protein 1.1 H (0.5-0.9) mg/dL Total Protein 7.9 (6.0-8.0) g/dL Albumin 3.8 (3.5-5.2) g/dL Globulin 4.1 g/dL Albumin/Globulin Ratio 0.9 Amylase 48 (25-115) U/L Urine Color (YELLOW) Urine Appearance (CLEAR) Urine pH (5.0-6.5) Ur Specific [place] (1.010-1.025) Urine Protein (NEGATIVE) mg/dL Urine Glucose (UA) (NORMAL) mg/dL Urine Ketones (NEGATIVE) mg/dL Urine Occult Blood (NEGATIVE) Urine Nitrite (NEGATIVE) Urine Bilirubin (NEGATIVE) Urine Urobilinogen (NEGATIVE) mg/dL Ur Leukocyte Esterase (NEGATIVE) Urine RBC (0-5) Urine WBC (0-5) Ur Squamous Epith Cells (NS,R,O) Urine Bacteria (NS) Urine HCG, Qual (NEGATIVE) 12/06/18 12/06/18 Range/Units 16:26 16:26 WBC (4.5-12.0) X10-3/uL RBC (3.23-5.20) x10(6)uL Hgb (11.5-15.5) g/dL Hct (30.0-51.3) % MCV (80-96) fL MCH (27.7-33.6) pg MCHC (32.2-35.4) g/dL RDW (11.5-15.5) % Plt Count (125-369) X10(3)uL MPV (7.4-10.4) fL Neut % (Auto) (46-82) % Lymph % (Auto) (13-37) % [place] % (Auto) (4-12) % Eos % (Auto) (1.0-5.0) % Baso % (Auto) (0-2) % Neut # (Auto) (1.6-8.3) # Lymph # (Auto) (0.6-5.0) # [place] # (Auto) (0.0-1.3) # Eos # (Auto) (0.0-0.8) # Baso # (Auto) (0.0-0.2) # Sodium (135-145) mmol/L Potassium (3.5-5.3) mmol/L Chloride (100-110) mmol/L Carbon Dioxide (21-32) mmol/L BUN (7-18) mg/dL Creatinine (0.55-1.02) mg/dL Est Cr Clr Drug Dosing mL/min Estimated GFR (MDRD) (>60) BUN/Creatinine Ratio (9-20) Glucose (80-116) mg/dL Calcium (8.6-10.2) mg/dL Total Bilirubin (0.1-1.3) mg/dL AST (5-25) IU/L ALT (12-36) U/L Alkaline Phosphatase (56-112) IU/L C-Reactive Protein (0.5-0.9) mg/dL Total Protein (6.0-8.0) g/dL Albumin (3.5-5.2) g/dL Globulin g/dL Albumin/Globulin Ratio Amylase (25-115) U/L Urine Color Yellow (YELLOW) Urine Appearance Clear (CLEAR) Urine pH 5.0 (5.0-6.5) Ur Specific [place] 1.020 (1.010-1.025) Urine Protein Negative (NEGATIVE) mg/dL Urine Glucose (UA) Normal (NORMAL) mg/dL Urine Ketones Negative (NEGATIVE) mg/dL Urine Occult Blood Large H (NEGATIVE) Urine Nitrite Negative (NEGATIVE) Urine Bilirubin Negative (NEGATIVE) Urine Urobilinogen Normal (NEGATIVE) mg/dL Ur Leukocyte Esterase Negative (NEGATIVE) Urine RBC 10-20 H (0-5) Urine WBC 0-5 (0-5) Ur Squamous Epith Cells Moderate H (NS,R,O) Urine Bacteria Moderate H (NS) Urine HCG, Qual Negative (NEGATIVE) Meds: Medications Generic Name Dose Route Start Last Admin Trade Name Freq PRN Reason Stop Dose Admin Sodium Chloride 10 ml 12/06/18 16:45 12/06/18 17:08 Saline Flush FLUSH 10 ml ASDIRECTED PRN Administration Keep Vein Open Discontinued Medications Generic Name Dose Route Start Last Admin Trade Name Freq PRN Reason Stop Dose Admin Sodium Chloride 1,000 mls @ 999 mls/hr 12/06/18 16:46 12/06/18 17:08 Normal Saline IV 12/06/18 17:46 999 mls/hr .BOLUS ONE Administration Iopamidol 100 ml 12/06/18 17:54 12/06/18 18:01 Isovue-370 (76%) IV 12/06/18 17:55 100 ml ONETIME ONE Administration Ondansetron HCl 4 mg 12/06/18 16:46 12/06/18 17:10 Zofran IVPUSH 12/06/18 16:47 4 mg ONETIME ONE Administration Ondansetron HCl 4 mg 12/06/18 19:09 Zofran IVPUSH 12/06/18 19:10 ONETIME ONE - Radiology Interpretation Free Text/Narrative:: CT scan of abdomen and pelvis showed normal appendix with a normal right ovary and normal renal collecting system. There was really nothing to explain the patient's symptoms of right lower quadrant pain per the radiologist. - Re-Assessments/Exams Free Text/Narrative Re-Assessment/Exam: 12/06/18 19:11: Patient with recurrent nausea. No vomiting. She still has the right lower quadrant abdominal pain but the nausea is more pronounced. CT scan of abdomen and pelvis showed a normal appendix. This could be mesenteric adenitis given her malaise and reported low-grade fevers and body aches. She does not appear to have a surgical problem or any other significant medical problems at this point. The plan will be to discharge her with rest at home. Also give her a prescription for Phenergan. Departure - Departure Time of Disposition: 19:20 Disposition: Home, Self-Care 01 Condition: Good Clinical Impression: Mesenteric adenitis Abdominal pain Qualifiers: Abdominal location: right lower quadrant Qualified Code(s): R10.31 - Right lower quadrant pain - Discharge Information Prescriptions: Promethazine [Phenergan] 25 mg PO Q6H PRN #12 tab PRN Reason: Nausea/Vomiting Referrals: Thom Neff MD [Primary Care Provider] - Forms: ED Department Discharge Additional Instructions: Your blood tests were reassuring. Your urine test showed no evidence of infection. CT scan of your abdomen and pelvis showed no evidence of appendicitis (in fact it showed a normal appendix per the radiologist) or any other significant problem. As we discussed, this could a mesenteric adenitis or inflammation of the lymph nodes around your intestine. This is a self-limited condition and usually does not require any intervention. You should rest. You should drink plenty of fluids. You may take ibuprofen and Tylenol as needed for pain. No work until 12/08/2018. Medication as prescribed (Phenergan 25 mg). Back to the emergency department for increasing pain, unrelenting vomiting, high fever or any other concerning sign or symptom. - My Orders Last 24 Hours: My Active Orders 12/06/18 16:45 Sodium Chloride 0.9% [Saline Flush] 10 ml FLUSH ASDIRECTED PRN Peripheral IV Insertion Adult [OM.PC] Routine 12/06/18 17:32 Abdomen Pelvis w Cont [CT] Stat 12/06/18 19:15 Promethazine [Phenergan] 25 mg PO ONETIME ONE 12/07/18 Breakfast NPO Now [Nothing per Oral Now Diet] [DIET] - Assessment/Plan Last 24 Hours: My Active Orders 12/06/18 16:45 Sodium Chloride 0.9% [Saline Flush] 10 ml FLUSH ASDIRECTED PRN Peripheral IV Insertion Adult [OM.PC] Routine 12/06/18 17:32 Abdomen Pelvis w Cont [CT] Stat 12/06/18 19:15 Promethazine [Phenergan] 25 mg PO ONETIME ONE 12/07/18 Breakfast NPO Now [Nothing per Oral Now Diet] [DIET]
[2018-12-06] MEDS: Iopamidol 755 Mg/ML 100 ML Bottle IV ONE (18:01)
[2018-12-06 19:22] VITALS: BP 150/89
[2018-12-06] MEDS: Promethazine 25 MG Tab PO ONE (19:31)
--- NOTE | 2018-12-07 08:14 | CT ---
INDICATION: Right lower quadrant abdominal pain, question appy. CT ABDOMEN AND PELVIS WITH CONTRAST: Spiral 3.75 ml axial sections were obtained through the abdomen and pelvis with 100 cc of Isovue 370 at 100 second delay 2 cc per second. Total DLP = 2350.05 mGy-cm. The lung hart and pleural spaces visualized appeared normal. The heart is normal in size. No pericardial effusion was seen. The liver appears somewhat low in density raising question of fatty liver. No focal liver lesions were seen. No gallstones were demonstrated. The adrenal glands and kidneys appeared normal without evidence of obstructive uropathy. The spleen and pancreas were unremarkable. No retroperitoneal mass was identified. The appendix appeared normal and visualized on axial images 86 through 91. The right ovary appeared normal measuring 24.3 mm with some minimal follicular change. At the left ovary there is a 3.35 cm low density mass compatible with a simple cyst--follicular cyst. No posterior cul-de-sac free fluid was seen. The urinary bladder was grossly normal. No organomegaly, mass lesions or free fluid collections were otherwise suggested in the abdomen and pelvis. No evidence of free air or bowel obstruction was seen. IMPRESSION: Essentially normal CT of the abdomen and pelvis with IV contrast-- probable follicular cyst at the left ovary. Report was called to Dr. Schmidt at 1815 hours. [facility]
== END 2018-12-06 19:39 | disposition home or self-care (01) ==
LOC: FB.ED 16:07
DX: I88.0 Nonspecific mesenteric lymphadenitis (principal); E66.9 Obesity, unspecified; F41.9 Anxiety disorder, unspecified; F32.9 Major depressive disorder, single episode, unspecified; Z86.2 Personal history of diseases of the blood and blood-forming organs and certain disorders involving the immune mechanism
CPT/HCPCS: 36415; 74177; 80053; 81001; 81025; 82150; 85025; 86140; 96361; 96374; 96376; 99284-25; A9270-GY; J2405; J7030; Q9967